=== PATIENT | female | born 1965 | race Caucasian/White ===

== ENCOUNTER 2018-09-06 18:16 | Observation (INO) | payer BC ==
[2018-09-06] MEDS ORDERED: ASPIRIN 81 MG PO STA (18:37)
--- NOTE | 2018-09-06 18:43 | ED ---
Chest Pain HPI - General Chief Complaint: Chest Pain Stated Complaint: Chest pain Time Seen by Provider: 09/06/18 18:25 Source: patient Mode of arrival: ambulatory Limitations: no limitations - History of Present Illness Initial Comments: Patient is a 53-year-old female who presents with a chief complaint of chest pain. This been going on for several weeks however worse today. Patient states she intermittently has chest pressure. She states that today she got chest pressure, associated with shortness of breath and lightheadedness. The patient identify any inciting incidences, nor can she identify any aggravating or alleviating factors that she does state that she is becoming increasingly short of breath with exertion. She is otherwise healthy, does not take any medications, she has a family history of an MO in her mother at the age of 76. Patient is a nonsmoker, nondiabetic, no diagnosed history of hypertension however she is hypertensive today. - Related Data Home Medications Medication Instructions Recorded Confirmed No Known Home Medications 09/06/18 09/06/18 Allergies Allergy/AdvReac Type Severity Reaction Status Date / Time amoxicillin [From Augmentin] Allergy Unknown Verified 09/06/18 18:58 clavulanic acid Allergy Unknown Verified 09/06/18 18:58 [From Augmentin] Review of Systems ROS Statement: Those systems with pertinent positive or pertinent negative responses have been documented in the HPI. ROS Other: All systems not noted in ROS Statement are negative. Cardiovascular: Reports: chest pain, dyspnea on exertion Past Medical History Past Medical History: No Reported History History of Any Multi-Drug Resistant Organisms: None Reported Additional Past Surgical History / Comment(s): carpal tunnel surgery Past Psychological History: No Psychological Hx Reported Smoking Status: Never smoker Past Alcohol Use History: None Reported Past Drug Use History: None Reported General Exam Limitations: no limitations General appearance: alert, in no apparent distress Head exam: Present: atraumatic, normocephalic Eye exam: Present: normal appearance ENT exam: Present: normal exam Neck exam: Present: normal inspection Respiratory exam: Present: normal lung sounds bilaterally. Absent: respiratory distress Cardiovascular Exam: Present: regular rate, normal rhythm GI/Abdominal exam: Present: soft. Absent: distended, tenderness Rectal exam: Present: deferred Extremities exam: Present: normal inspection Back exam: Present: normal inspection Neurological exam: Present: alert, oriented X3, CN II-XII intact, normal gait Psychiatric exam: Present: normal affect, normal mood Skin exam: Present: warm, dry, intact Course Vital Signs 09/06/18 18:22 Temperature 98.1 F Pulse Rate 84 Respiratory 18 Rate Blood Pressure 167/94 O2 Sat by Pulse 100 Oximetry Chest Pain MDM - Core Measures AMI Core Measures Followed: Yes - MDM Patient presents with a chief complaint of chest pain. On initial evaluation, vitals are stable she is mildly hypertensive. Patient is in no acute distress. Patient to be evaluated with basic labs including cardiac enzymes. She was given an aspirin. EKG performed at urgent care did not show any signs of ischemia however there was a prolonged QT segment, and nonspecific ST wave a bnormalities. Given the patient's history, patient is agreeable to evaluation and stress test. EKG performed at 1843 shows normal sinus rhythm with a rate of 84 bpm, there are nonspecific ST-T segment abnormalities however no acute findings of ischemia. Segments are otherwise within normal limits. 9:52 PM Lab evaluation this patient is unremarkable. Chest x-ray shows no acute process, initial troponin is negative. Case was discussed with Dr. Fairchild who accepts admission. patient and family agreeable with care plan. HEART Score for Major Cardiac Events from [email or web address] on 09/06/2018 All calculations should be rechecked by clinician prior to use RESULT SUMMARY: 5 points Moderate Score (4-6 points) Risk of MACE of 12-16.6%. INPUTS: History > 2 = Highly suspicious EKG > 1 = Non-specific repolarization disturbance Age > 1 = 45-64 Risk factors > 1 = 1-2 risk factors Initial troponin > 0 = ?normal limit Disposition Clinical Impression: Moderate risk chest pain Disposition: ADMITTED IP TO THIS HOSP Condition: Good Instructions (If sedation given, give patient instructions): Chest Pain (ED) Referrals: Cynthia Lockwood DO [Primary Care Provider] - 1-2 days Decision to Admit Reason: Admit from EC - Out of Hospital Transfer - Req. Specs Out of Hospital Transfer - Requested Specifics: Telemetry Unit
[2018-09-06 19:10] LABS: Basophils # (A) 0.1 k/uL (0-0.2); Basophils % (A) 1 %; Eosinophils # (A) 0.4 k/uL (0-0.7); Eosinophils % (A) 5 %; HCT 41.2 % (34.0-46.0); HGB 13.1 gm/dL (11.4-16.0); Lymphocytes # (A) 2.2 k/uL (1.0-4.8); Lymphocytes % (A) 27 %; MCH 27.1 pg (25.0-35.0); MCHC 31.8 g/dL (31.0-37.0); MCV 85.1 fL (80.0-100.0); Mean Platelet Volume 7.2; Monocytes # (A) 0.3 k/uL (0-1.0); Monocytes % (A) 4 %; Neutrophils # (A) 5.1 k/uL (1.3-7.7); Neutrophils % (A) 62 %; Platelet Count 240 k/uL (150-450); RBC 4.85 m/uL (3.80-5.40); RDW 13.6 % (11.5-15.5); WBC 8.1 k/uL (3.8-10.6)
[2018-09-06 19:20] LABS: Calcium 9.7 mg/dL (8.4-10.2); Potassium 4.1 mmol/L (3.5-5.1)
--- NOTE | 2018-09-06 19:25 | XR ---
EXAMINATION TYPE: XR chest 2V DATE OF EXAM: 09/06/2018 COMPARISON: NONE HISTORY: Chest pain TECHNIQUE: Frontal and lateral views of the chest are obtained. FINDINGS: There is no focal air space opacity, pleural effusion, or pneumothorax seen. The cardiac silhouette size is within normal limits. The osseous structures are intact. IMPRESSION: No acute cardiopulmonary process.
[2018-09-06] MEDS ORDERED: NALOXONE 0.4 MG/ML 1 ML VIAL IV PRN (21:51)
--- NOTE | 2018-09-06 22:54 | P.HPIM ---
History of Present Illness H&P Date: 09/06/18 The patient is a 53 yo F with no significant PMH, never-smoker who presented to the ED for chest pain. The patient reports that for the past 1 month, she had been experiencing non-exertional L sided chest pain, pressure-like, 5/10, w/ some radiation to the neck, occurring intermittently, lasting for up-to 10 minutes at a time, with no associated symptoms. She also reports noticing that her exercise tolerance is somewhat diminished over this time and she gets winded while working in her garden, which is unsual for her. She denied non-exertional dyspnea, palpitations, nausea, vomiting, diaphoresis. She also denied fever, chills, cough, abdominal pain, headache, or dizziness. She feels that her symptoms may be linked to increased stress at work. She is employed as a chinese teacher. She underwent an extensive evaluation in the ED w/ EKG showing NSR @ 84 bpm, with TWI in leads III and V1. Laboratory evaluation revealed a troponin of < 0.012, BNP 21, Hgb 13.1, platelets 240, Cr 0.91, BUN 13, and glucose 97. Review of Systems Pertinent positives and negatives as discussed in HPI, a complete review of systems was performed and all other systems are negative. Past Medical History Past Medical History: No Reported History History of Any Multi-Drug Resistant Organisms: None Reported Additional Past Surgical History / Comment(s): carpal tunnel surgery Past Psychological History: No Psychological Hx Reported Smoking Status: Never smoker Past Alcohol Use History: None Reported Past Drug Use History: None Reported Medications and Allergies Home Medications Medication Instructions Recorded Confirmed Type No Known Home Medications 09/06/18 09/06/18 History Allergies Allergy/AdvReac Type Severity Reaction Status Date / Time amoxicillin [From Augmentin] Allergy Unknown Verified 09/06/18 18:58 clavulanic acid Allergy Unknown Verified 09/06/18 18:58 [From Augmentin] Physical Exam Vitals: Vital Signs Temp Pulse Resp BP Pulse Ox 09/06/18 21:00 80 135/89 96 09/06/18 20:00 88 147/86 99 09/06/18 18:45 80 09/06/18 18:22 98.1 F 84 18 167/94 100 Intake and Output 09/06/18 09/06/18 09/06/18 06:59 14:59 22:59 Other: Weight 68.039 kg General: non toxic, no distress, appears at stated age, normal weight Derm: no unusual rashes/lesions no unusual ecchymoses, warm, dry Head: atraumatic, normocephalic, symmetric Eyes: EOMI, no lid lag, anicteric sclera, pupils equal round reactive to light ENT: Nose and ears atraumatic, no thrush, no pharyngeal erythema Neck: No thyromegaly, no cervical lymphadenopathy, trachea midline, supple Mouth: no lip lesion, mucus membranes moist Cardiovascular: S1S2 reg, no murmur, positive posterior tibial pulse bilateral, no edema, capillary refill less than 2 seconds Lungs: CTA bilateral, no rhonchi, no rales , no accessory muscle use Abdominal: soft, nontender to palpation, no guarding, no appreciable orga nomegaly, normal bowel sounds Ext: no gross muscle atrophy, muscle strength 5 out of 5 in all 4 extremities grossly, no contractures, Neuro: CN II-XI grossly intact, light touch intact all 4 extremities, finger to nose within normal limits, Psych: Alert, oriented, appropriate affect Results CBC & Chem 7: 09/06/18 18:50 09/06/18 18:50 Assessment and Plan Plan: Chest pain, r/o ACS -Cardiology consult -Trend Troponin and EKG -Cardiac monitoring -C/w Aspirin DVT prophylaxis -Heparin The patient is admitted with an anticipated less than 2 midnight stay for evaluation of chest pain. CODE STATUS:Full code Discussed with: Patient Anticipated discharge date: 09/07/[address]: Home A total of 40 minutes was spent on the care of this complex patient more than 50% of the time was spent in counseling and care coordination.
[2018-09-07] MEDS ORDERED: HEPARIN SODIUM,PORCINE 5,000 UNIT/ML 1 ML VIAL SQ SCH
[2018-09-07 06:18] LABS: Basophils # (A) 0.1 k/uL (0-0.2); Basophils % (A) 1 %; Eosinophils # (A) 0.4 k/uL (0-0.7); Eosinophils % (A) 6 %; HCT 41.4 % (34.0-46.0); HGB 12.9 gm/dL (11.4-16.0); Lymphocytes # (A) 2.5 k/uL (1.0-4.8); Lymphocytes % (A) 37 %; MCH 26.9 pg (25.0-35.0); MCHC 31.2 g/dL (31.0-37.0); MCV 86.2 fL (80.0-100.0); Mean Platelet Volume 7.2; Monocytes # (A) 0.3 k/uL (0-1.0); Monocytes % (A) 5 %; Neutrophils # (A) 3.3 k/uL (1.3-7.7); Neutrophils % (A) 49 %; Platelet Count 245 k/uL (150-450); RDW 13.7 % (11.5-15.5); WBC 6.8 k/uL (3.8-10.6)
[2018-09-07 06:29] LABS: Anion Gap 5 mmol/L; Blood Urea Nitrogen 13 mg/dL (7-17); Calcium 9.5 mg/dL (8.4-10.2); Carbon Dioxide 25 mmol/L (22-30); Chloride 109 mmol/L (98-107); Glucose 84 mg/dL (74-99); Potassium 4.5 mmol/L (3.5-5.1); Sodium 139 mmol/L (137-145)
[2018-09-07 08:21] VITALS: RESP 18
[2018-09-07] MEDS ORDERED: ASPIRIN 81 MG PO SCH (09:00)
[2018-09-07 10:21] LABS: Cholesterol 161 mg/dL (<200); HDL Cholesterol 52 mg/dL (40-60); LDL Cholesterol,Calculated 97 mg/dL (0-99); Triglycerides 58 mg/dL (<150)
--- NOTE | 2018-09-07 11:45 | ECHOF ---
Referral Reason:cp MEASUREMENTS -------- HEIGHT: 160.0 cm WEIGHT: 68.0 kg BP: RVIDd: 2.6 cm (< 3.3) IVSd: 0.8 cm (0.6 - 1.1) LVIDd: 4.1 cm (3.9 - 5.3) LVPWd: 1.1 cm (0.6 - 1.1) IVSs: 1.6 cm LVIDs: 1.6 cm LVPWs: 1.8 cm LAESV Index (A-L): 17.61 ml/m Ao Diam: 2.8 cm (2.0 - 3.7) AV Cusp: 2.0 cm (1.5 - 2.6) LA Diam: 2.3 cm (2.7 - 3.8) MV EXCURSION: 8.460 mm (> 18.000) MV EF SLOPE: 83 mm/s (70 - 150) EPSS: 0.4 cm MV E Bulmaro: 0.84 m/s MV DecT: 269 ms MV A Bulmaro: 0.87 m/s MV E/A Ratio: 0.96 AR PHT: 699 ms RAP: 5.00 mmHg RVSP: 14.41 mmHg FINDINGS -------- Sinus rhythm. This was a technically good study. The left ventricular size is normal. Left ventricular wall thickness is normal. Overall left vent ricular systolic function is normal with, an EF between 55 - 60 %. The right ventricle is normal in size. Normal LA size by volume 22+/-6 ml/m2. The right atrial size is normal. Interatrial and interventricular septum intact. The aortic valve was not well visualized. There is mild aortic regurgitation. The mitral valve is normal. There is trace mitral regurgitation. Trace tricuspid regurgitation present. There is no evidence of pulmonary hypertension. The right ventricular systolic pressure, as measured by Doppler, is 14.41mmHg. There is no pulmonic regurgitation present. The aortic root size is normal. Normal inferior vena cava with normal inspiratory collapse consistent with estimated right atrial pre ssure of 5 mmHg. There is no pericardial effusion. CONCLUSIONS -------- 1. Sinus rhythm. 2. This was a technically good study. 3. The left ventricular size is normal. 4. Left ventricular wall thickness is normal. 5. Overall left ventricular systolic function is normal with, an EF between 55 - 60 %. 6. The right ventricle is normal in size. 7. Normal LA size by volume 22+/-6 ml/m2. 8. The right atrial size is normal. 9. Interatrial and interventricular septum intact. 10. The aortic valve was not well visualized. 11. There is mild aortic regurgitation. 12. The mitral valve is normal. 13. There is trace mitral regurgitation. 14. Trace tricuspid regurgitation present. 15. There is no evidence of pulmonary hypertension. 16. The right ventricular systolic pressure, as measured by Doppler, is 14.41mmHg. 17. There is no pulmonic regurgitation present. 18. The aortic root size is normal. 19. Normal inferior vena cava with normal inspiratory collapse consistent with estimated right atrial pressure of 5 mmHg. 20. There is no pericardial effusion. DIRECTOR OF COMMUNITY LIFE: Juhi Salvador RDCS
--- NOTE | 2018-09-07 11:49 | ECHOS ---
STRESS ECHOCARDIOGRAM DATE OF SERVICE: 09/07/2018 INDICATIONS: Chest pain. MEDICATIONS: BASELINE HEART RATE: 73 BASELINE BLOOD PRESSURE: 124/80 MAXIMUM HEART RATE: 148 MAXIMUM BLOOD PRESSURE: 171/79 85% MPHR: 144 100% MPHR: 169 METS: 9 MAXIMUM STAGE REACHED: III TOTAL EXERCISE TIME: 8 minutes CLINICAL INFORMATION: Baseline EKG shows sinus rhythm, normal axis, normal intervals. Patient exercised on Fareed protocol for a total of 8 minutes achieving 9 METs, 87% of predicted maximal heart rate without chest pain. At peak exercise, there was 1.[address]-segment depression noted in the inferolateral leads. Baseline echo shows normal left ventricular size, wall motion and systolic function. Postexercise there is normal hyperdynamic response of all segments of myocardium noted. CONCLUSIONS: 1. Good exercise tolerance. 2. Abnormal stress test by EKG criteria. 3. Normal stress test by echocardiographic data. MMSABINEL / IJN: [id number] /
[2018-09-07 12:08] VITALS: BP 124/82; PULSE 80; TEMP 98.2
--- NOTE | 2018-09-07 12:33 | P.CRDCN ---
History of Present Illness History of present illness: This is a pleasant 53-year-old female with no significant past medical history. She denies history of coronary artery disease in herself or her immediate family, no hypertension, no dyslipidemia and diabetes mellitus. She does not follow with a commercial crabber for any reason. We have been asked to see her in consultation secondary to chest discomfort. She states since May she has been feeling an achy sensation in the left arm. She has seen her primary care physician multiple times and had extensive workup in the forms of vascular studies, EMG and x-rays. There has been no official diagnosis as to the left arm discomfort. Recently over the previous couple of days she has noticed increased exertional shortness of breath and an intermittent pressure in the left precordial region. She states she has felt this discomfort in her chest in the past however associated with the left arm discomfort she came to the hospital for further evaluation. She states she walks regularly with her and has noticed an increase in her shortness of breath with walking as well as becoming acutely diaphoretic. Yesterday she was gardening and became short of breath with minimal activity. She denies palpitations, nausea or vomiting. She is seen and examined resting comfortably in bed in no acute distress. She is currently chest pain-free and denies dyspnea. She states she underwent an exercise stress echocardiogram approximately one year ago for previous surgical authorization secondary to baseline abnormal EKG at [facility] that she states was normal and she was able to proceed with surgery. EKG on arrival reveals sinus mechanism with T-wave inversions and ST depression inferiorly as well as ST depression in the lateral leads. Chest x-ray is negative for an acute cardiopulmonary process. Laboratory data reviewed, WBC 6.8, hemoglobin 12.9, platelets 245, sodium 139, potassium 4.5, creatinine 0.85, cardiac enzymes negative 3, NT proBNP 21, LDL 97 HDL 52. She takes no daily cardiac medications. At the time of my exam: CONSTITUTIONAL: Denies fever. Denies chills. EYES: Denies blurred vision. Denies vision changes. Denies eye pain. EARS, NOSE, MOUTH & THROAT: Denies headache. Denies sore throat. Denies ear pain. CARDIOVASCULAR: Denies chest pain. Denies shortness of breath. Denies orthopnea. Denies PND. Denies palpitations. RESPIRATORY: Denies cough. GASTROINTESTINAL: Denies abdominal pain. Denies diarrhea. Denies constipation. Denies nausea. Denies vomiting. MUSCULOSKELETAL: Denies myalgias. INTEGUMENTARY: Denies pruitis. Denies rash. NEUROLOGIC: Denies numbness. Denies tingling. Denies weakness. PSYCHIATRIC: Denies anxiety. Denies depression. ENDOCRINE: Denies fatigue. Denies weight change. Denies polydipsia. Denies polyurina. GENITOURINARY: Denies burning, hematuria or urgency with micturation. HEMATOLOGIC: Denies history of anemia. Denies bleeding. Blood pressure 124/82 heart rate 88 afebrile maintaining oxygen saturation on room air GENERAL: This is a 53-year-old female in no apparent distress at the time of my examination. HEENT: Head is atraumatic, normocephalic. Pupils are equal, round. Sclerae anicteric. Conjunctivae are clear. Mucous membranes of the mouth are moist. Neck is supple. There is no jugular venous distention. No carotid bruit is heard. LUNGS: Clear to auscultation no wheezes, rales or rhonchi. No chest wall tenderness is noted on palpation or with deep breathing. HEART: Regular rate and rhythm with faint systolic ejection murmur at the base, no rubs or gallops. S1 and S2 heard. ABDOMEN: Soft, nontender. Bowel sounds are heard. No organomegaly noted. EXTREMITIES: No evidence of peripheral edema and no calf tenderness noted. VASCULAR: Radial and dorsalis pedis pulses palpated, no evidence of clubbing. NEUROLOGIC: Patient is awake, alert and oriented x3. ASSESSMENT Chest pain with shortness of breath, an acute coronary event has been ruled out. Baseline EKG abnormalities. PLAN An acute coronary event has been ruled out. Obtain 2D echocardiogram and doppler study to assess cardiac structure and function. Obtain reports of previous EKG and stress test from [facility] from 06/2017. Perform stress echocardiogram to assess for stress induced ischemia. If stress test is normal she is stable for discharge from a cardiac perspective. Follow up with Dr. Mahan in 2 weeks for ongoing evaluation. Thank you kindly for this consultation. Nurse Practitioner note has been reviewed, I agree with a documented findings and plan of care. Patient was seen and examined. Past Medical History Past Medical History: No Reported History History of Any Multi-Drug Resistant Organisms: None Reported Additional Past Surgical History / Comment(s): carpal tunnel surgery Past Anesthesia/Blood Transfusion Reactions: No Reported Reaction Past Psychological History: No Psychological Hx Reported Smoking Status: Never smoker Past Alcohol Use History: None Reported Past Drug Use History: None Reported Medications and Allergies Home Medications Medication Instructions Recorded Confirmed Type No Known Home Medications 09/06/18 09/06/18 History Allergies Allergy/AdvReac Type Severity Reaction Status Date / Time amoxicillin [From Augmentin] Allergy Unknown Verified 09/06/18 18:58 clavulanic acid Allergy Unknown Verified 09/06/18 18:58 [From Augmentin] Physical Exam Vitals: Vital Signs Temp Pulse Pulse Resp BP BP BP 09/07/18 11:50 98.2 F 80 18 124/82 09/07/18 07:30 97.8 F 83 18 121/76 09/07/18 04:00 98.2 F 80 15 145/94 09/07/18 03:22 70 16 09/07/18 00:46 97.8 F 99 16 118/74 09/07/18 00:00 17 09/06/18 23:43 98.5 F 84 18 138/76 09/06/18 22:18 17 09/06/18 21:00 80 135/89 09/06/18 20:00 88 147/86 09/06/18 18:45 80 09/06/18 18:22 98.1 F 84 18 167/94 Pulse Ox 09/07/18 11:50 97 09/07/18 07:30 99 09/07/18 04:00 99 09/07/18 03:22 09/07/18 00:46 99 09/07/18 00:00 09/06/18 23:43 96 09/06/18 22:18 09/06/18 21:00 96 09/06/18 20:00 99 09/06/18 18:45 09/06/18 18:22 100 Intake and Output 09/06/18 09/07/18 09/07/18 22:59 06:59 14:59 Other: Voiding Method Toilet Toilet # Voids 1 1 Weight 68.039 kg Results 09/07/18 05:35 09/07/18 05:35 Cardiac Enzymes 09/06/18 09/07/18 09/07/18 Range/Units 18:50 00:32 05:35 Troponin I <0.012 <0.012 <0.012 (0.000-0.034) ng/mL Lipids 09/07/18 Range/Units 05:35 Triglycerides 58 (<150) mg/dL Cholesterol 161 (<200) mg/dL HDL Cholesterol 52 (40-60) mg/dL CBC 09/06/18 09/07/18 Range/Units 18:50 05:35 WBC 8.1 6.8 (3.8-10.6) k/uL RBC 4.85 4.80 (3.80-5.40) m/uL Hgb 13.1 12.9 (11.4-16.0) gm/dL Hct 41.2 41.4 (34.0-46.0) % Plt Count 240 245 (150-450) k/uL Comprehensive Metabolic Panel 09/06/18 09/07/18 Range/Units 18:50 05:35 Sodium 141 139 (137-145) mmol/L Potassium 4.1 4.5 (3.5-5.1) mmol/L Chloride 107 109 H (98-107) mmol/L Carbon Dioxide 26 25 (22-30) mmol/L BUN 13 13 (7-17) mg/dL Creatinine 0.91 0.85 (0.52-1.04) mg/dL Glucose 97 84 (74-99) mg/dL Calcium 9.7 9.5 (8.4-10.2) mg/dL Current Medications Generic Name Dose Route Start Last Admin Trade Name Freq PRN Reason Stop Dose Admin Aspirin 81 mg 09/07/18 09:00 09/07/18 11:50 Aspirin PO Not Given DAILY MAYE Naloxone HCl 0.2 mg 09/06/18 21:51 Narcan IV Q2M PRN Opioid Reversal Intake and Output 09/06/18 09/07/18 09/07/18 22:59 06:59 14:59 Other: Voiding Method Toilet Toilet # Voids 1 1 Weight 68.039 kg 09/07/18 05:35 09/07/18 05:35
--- NOTE | 2018-09-07 12:39 | P.PN ---
Progress Note - Text Stress test as dictated is incorrect. Her stress test showed abnormal EKG response to exercise with no wall motion abnormalities to suggest ischemia. Normal stress test.
--- NOTE | 2018-09-07 13:44 | P.DS ---
Providers Date of admission: 09/06/18 21:52 Expected date of discharge: 09/07/18 Attending physician: García Fairchild MD Consults: 09/06/18 22:53 Consult Physician Urgent Consulting Provider: Kareem Fajardo Consult Reason/Comments: chest pain Do you want consulting provider notified?: Yes Primary care physician: Cynthia Lockwood Hospital Course: Discharge Diagnosis: Non cardiac chest pain Hospital Course: Patient is a 53 yo CF with no past medical history who is a non smoker. She presented to the emergency department with chest pain with radiation to the neck. In the ED she underwent an extensive evaluation. On Arrival her blood pressure was slightly elevated at 167/94. This resolved without intervention. Her EKG showed TWI in leads III and V1. Initial troponin was negative. She was given a dose of aspirin and admitted for further monitoring. Her troponin remained negative. She was seen by cardiology and underwent exercise stress echo which was normal. She was determined stable for discharge. Her cholesterol profile was within normal limits. She will follow up with Dr. Asher in 1-[address] Mahan in 2 weeks. Patient seen and examined at bedside. States " Even if I was still having chest pain I wouldn't tell anyone at this hospital as it took 2.5 hrs to get my stress test results. I was about to leave AMA." Vital signs reviewed and stable. General: non toxic, no distress, appears at stated age Derm: warm, dry Head: atraumatic, normocephalic, symmetric Eyes: EOMI, no lid lag, anicteric sclera Cardiovascular: S1S2 reg, no murmur, positive posterior tibial pulse bilateral, Lungs: CTA bilateral, no rhonchi, no rales , no accessory muscle use A total of 15 minutes of time were spent preparing this complex discharge summary . Pertinent Studies: stress echo- normal CXR- NAP Patient Condition at Discharge: Good Plan - Discharge Summary Discharge Rx Participant: Yes New Discharge Prescriptions: Continue No Known Home Medications Discharge Medication List No Known Home Medications 09/06/18 [History] Follow up Appointment(s)/Referral(s): Cynthia Lockwood DO [Primary Care Provider] - 1-2 days Jameson Mahan MD [STAFF PHYSICIAN] - 2 Weeks Patient Instructions/Handouts: Chest Pain (ED) Activity/Diet/Wound Care/Special Instructions: Regular diet Activity as tolerated
== END 2018-09-07 13:56 | disposition home or self-care (01) ==
LOC: EC 18:16 → 1SOBS 21:52
PROVIDERS: ADMIT Internal Medicine; ATTEND Internal Medicine
DX: R07.2 Precordial pain (principal); R42 Dizziness and giddiness; M79.602 Pain in left arm; I45.81 Long QT syndrome; R06.00 Dyspnea, unspecified; R06.02 Shortness of breath; R03.0 Elevated blood-pressure reading, without diagnosis of hypertension; R61 Generalized hyperhidrosis; Z82.49 Family history of ischemic heart disease and other diseases of the circulatory system; Z88.0 Allergy status to penicillin
CPT/HCPCS: 99285; 36415; 93005; 93306; 93351; 83880; 80061; 80048 ×2; 84484 ×2; 85025 ×2; 71046; G0378 ×2

== ENCOUNTER → 2022-07-18 | Outpatient (CLI) | payer BC ==
--- NOTE | 2022-07-22 16:33 | MM ---
Reason for Exam: Screening (asymptomatic). Last mammogram was performed 1 year(s) and 4 month(s) ago. Patient History: Menarche at age 14. First Full-Term at age 15. Postmenopausal. Patient has history of breast feeding. 02/2022, US biopsy breast VAD RT on the Right side. Risk Values: Bebe 5 year model risk: 1.0%. NCI Lifetime model risk: 7.0%. Prior Study Comparison: 11/30/2015 Bilateral Screening Mammogram, [facility]. 02/21/2020 Bilateral MG 3D screening mammo w/cad, [facility]. 02/28/2021 Bilateral MG 3D screening mammo w/cad, [facility]. 03/20/2021 Right MG 3D work up w/cad RT, [facility]. Tissue Density: There are scattered fibroglandular densities. Findings: Analyzed By CAD. Abdomen appear symmetrical stable. No significant interval change is evident. A core markers within the right breast. No suspicious groups of microcalcifications, spiculated or lobular masses, architectural distortion or other secondary signs of malignancy are mammographically apparent.Pattern appears symmetrical and stable. There is a focal asymmetry within the mid upper left breast. Compression views recommended over this area. A core marker is within the right breast. No suspicious groups of microcalcifications, spiculated or lobular masses, architectural distortion or other secondary signs of malignancy are mammographically apparent. Overall Assessment: Incomplete: need additional imaging evaluation, BI-RAD 0 Management: Diagnostic Mammogram of the left breast. A negative mammogram report should not preclude additional follow up of suspicious palpable abnormalities. Patient should continue monthly self breast exam. A clinical breast exam by your physician is recommended on an annual basis and results should be correlated with mammographic findings. Electronically signed and approved by: Shawn Miranda D.O. Radiologis
== END | disposition home or self-care (01) ==
LOC: RADMAMWWP 12:40
PROVIDERS: ATTEND Obstetrics & Gynecology
DX: Z12.31 Encounter for screening mammogram for malignant neoplasm of breast (principal); Z78.0 Asymptomatic menopausal state
CPT/HCPCS: 77063; 77067

== ENCOUNTER → 2022-07-26 | Outpatient (CLI) | payer BC ==
--- NOTE | 2022-07-26 10:26 | MM ---
Reason for Exam: Additional evaluation requested from abnormal screening. Last screening mammogram was performed less than 1 month ago. Patient History: Menarche at age 14. First Full-Term at age 15. Postmenopausal. Patient has history of breast feeding. 02/2022, US biopsy breast VAD RT on the Right side. Risk Values: Bebe 5 year model risk: 1.0%. NCI Lifetime model risk: 7.0%. Prior Study Comparison: 02/28/2021 Bilateral MG 3D screening mammo w/cad, [facility]. 03/20/2021 Right MG 3D work up w/cad RT, [facility]. 07/18/2022 Bilateral MG 3D screening mammo w/cad, [facility]. Tissue Density: Left: The breast tissue is heterogeneously dense. This may lower the sensitivity of mammography. Findings: Analyzed By CAD. No suspicious calcifications within the left breast. No architectural distortion. Focal asymmetry within the left breast in the mid upper portion compresses without definitive nodularity identified. Overall Assessment: Benign, BI-RAD 2 Management: Screening Mammogram of both breasts in 1 year. A clinical breast exam by your physician is recommended on an annual basis and results should be correlated with mammographic findings. This exam should not preclude additional follow-up of suspicious palpable abnormalities. Results were given to the patient verbally at the time of exam. Electronically signed and approved by: Zia Armstrong D.O.
== END | disposition home or self-care (01) ==
LOC: RADMAMWWP 09:51
PROVIDERS: ATTEND Obstetrics & Gynecology
DX: R92.8 Other abnormal and inconclusive findings on diagnostic imaging of breast (principal); Z78.0 Asymptomatic menopausal state
CPT/HCPCS: 77061; 77065

== ENCOUNTER → 2023-07-25 | Outpatient (CLI) | payer BC ==
--- NOTE | 2023-07-28 12:44 | MM ---
Reason for Exam: Screening (asymptomatic). Last mammogram was performed 1 year(s) and 1 month(s) ago. Patient History: Menarche at age 14. First Full-Term at age 15. Postmenopausal. Patient has history of breast feeding. 02/2022, US biopsy breast VAD RT on the Right side. Risk Values: Bebe 5 year model risk: 1.0%. NCI Lifetime model risk: 6.9%. Prior Study Comparison: 03/20/2021 Right MG 3D work up w/cad RT, [facility]. 07/18/2022 Bilateral MG 3D screening mammo w/cad, [facility]. 07/26/2022 Left MG 3D work up w/cad , [facility]. Tissue Density: The breasts are heterogeneously dense, which may obscure small masses. Findings: Analyzed By CAD. Small grouped calcifications in the subareolar central upper breast breast. Surgical clip right breast. Benign-appearing calcifications. Overall Assessment: Incomplete: need additional imaging evaluation, BI-RAD 0 Management: Diagnostic Mammogram of the left breast. . Patient should continue monthly self-breast exams. A clinical breast exam by your physician is recommended on an annual basis. This exam should not preclude additional follow-up of suspicious palpable abnormalities. Note on Bebe scores and lifetime risk: 1. A Bebe score greater than 3% is considered moderate risk. If this is the case, consider specialist referral to assess eligibility for a risk reducing agent. 2. If overall lifetime risk for the development of breast cancer is 20% or higher, the patient may qualify for future screening with alternating mammogram and breast MRI. Electronically signed and approved by: Bandar May M.D. Radiologis
== END | disposition home or self-care (01) ==
LOC: RADMAMWWP 16:20
PROVIDERS: ATTEND Obstetrics & Gynecology
DX: Z12.31 Encounter for screening mammogram for malignant neoplasm of breast (principal); Z78.0 Asymptomatic menopausal state
CPT/HCPCS: 77063; 77067

== ENCOUNTER → 2023-08-01 | Outpatient (CLI) | payer BC ==
--- NOTE | 2023-08-01 09:40 | MM ---
Reason for Exam: Additional evaluation requested from abnormal screening. Last screening mammogram was performed less than 1 month ago. Patient History: Menarche at age 14. First Full-Term at age 15. Postmenopausal. Patient has history of breast feeding. 02/2022, US biopsy breast VAD RT on the Right side. Risk Values: Bebe 5 year model risk: 1.0%. NCI Lifetime model risk: 6.9%. Prior Study Comparison: 07/18/2022 Bilateral MG 3D screening mammo w/cad, [facility]. 07/26/2022 Left MG 3D work up w/cad LT, [facility]. 07/25/2023 Bilateral MG 3D screening mammo w/cad, [facility]. Tissue Density: Left: The breasts are heterogeneously dense, which may obscure small masses. Findings: Analyzed By CAD. Benign group of calcifications left breast without suspicious cluster. Overall Assessment: Benign, BI-RAD 2 Management: Screening Mammogram of both breasts in 1 year. . Results were given to the patient verbally at the time of exam. Patient should continue monthly self-breast exams. A clinical breast exam by your physician is recommended on an annual basis. This exam should not preclude additional follow-up of suspicious palpable abnormalities. Note on Bebe scores and lifetime risk: 1. A Bebe score greater than 3% is considered moderate risk. If this is the case, consider specialist referral to assess eligibility for a risk reducing agent. 2. If overall lifetime risk for the development of breast cancer is 20% or higher, the patient may qualify for future screening with alternating mammogram and breast MRI. Electronically signed and approved by: Deonte Charles M.D. Radiologis
== END | disposition home or self-care (01) ==
LOC: RADMAMWWP 08:22
PROVIDERS: ATTEND Obstetrics & Gynecology
DX: R92.8 Other abnormal and inconclusive findings on diagnostic imaging of breast (principal); R92.332 Mammographic heterogeneous density, left breast; R92.1 Mammographic calcification found on diagnostic imaging of breast; Z78.0 Asymptomatic menopausal state
CPT/HCPCS: 77061; 77065

== ENCOUNTER → 2023-12-19 | Outpatient (CLI) | payer BC ==
--- NOTE | 2023-12-19 17:50 | CA ---
Transthoracic Echo Report Name: Jessica Guevara Age: 58 Gender: F : 1965 Exam Date: 12/19/2023 11:30 Exam Location: [facility] Ht (in): 63 Wt (lb): 165 Ordering Physician: Cynthia Lockwood DO Attending/Referring Phys: Cynthia Lockwood DO Accounting Professor Renata Mendes RDCS Procedure CPT: Indications: R01.1 Murmur Cardiac Hx: Technical Quality: Fair Contrast 1: Total Dose (mL): Contrast 2: Total Dose (mL): MEASUREMENTS (Male / Female) Normal Values 2D ECHO LV Diastolic Diameter PLAX 4.5 cm 4.2 - 5.9 / 3.9 - 5.3 cm LV Systolic Diameter PLAX 2.9 cm IVS Diastolic Thickness 0.9 cm 0.6 - 1.0 / 0.6 - 0.9 cm LVPW Diastolic Thickness 0.9 cm 0.6 - 1.0 / 0.6 - 0.9 cm LV Relative Wall Thickness 0.4 RV Internal Dim ED PLAX 3.9 cm LA Volume 51.9 cm??? 18 - 58 / 22 - 52 cm??? LA Volume Index 28.1 cm???/m??? 16 - 28 cm???/m??? M-MODE Aortic Root Diameter MM 2.6 cm LA Systolic Diameter MM 3.5 cm LA Ao Ratio MM 1.4 AV Cusp Separation MM 1.8 cm DOPPLER AV Peak Velocity 158.4 cm/s AV Peak Gradient 10.0 mmHg AV Mean Velocity 104.9 cm/s AV Mean Gradient 5.1 mmHg AV Velocity Time Integral 31.1 cm AI Peak Velocity 261.8 cm/s AI Peak Gradient 27.4 mmHg AI Pressure Half Time 817.9 ms LVOT Peak Velocity 136.0 cm/s LVOT Peak Gradient 7.4 mmHg LVOT Velocity Time Integral 27.0 cm MV Area PHT 3.9 cm??? Mitral E Point Velocity 69.6 cm/s Mitral A Point Velocity 59.7 cm/s Mitral E to A Ratio 1.2 MV Deceleration Time 192.1 ms MV E' Velocity 6.5 cm/s Mitral E to MV E' Ratio 10.8 FINDINGS Left Ventricle Normal Left ventricular size, wall thickness, systolic function with no obvious regional wall motion abnormalities. Normal Left ventricular diastolic filling pattern. Left ventricular ejection fraction is estimated at 55-60 %. Right Ventricle Mild right ventricular dilatation. Right ventricular systolic pressure within normal limits. Right Atrium Normal right atrial size. Left Atrium Normal left atrial size. Mitral Valve Structurally normal mitral valve. No mitral stenosis. Mild mitral regurgitation. Aortic Valve Trileaflet aortic valve. No aortic stenosis. Trace to mild aortic regurgitation. Aortic valve sclerosis. Tricuspid Valve Structurally normal tricuspid valve. Mild tricuspid regurgitation. Pulmonic Valve Structurally normal pulmonic valve. Pericardium No pericardial effusion. Aorta Normal size aortic root and proximal ascending aorta. CONCLUSIONS Left ventricular ejection fraction 55-60% Mild mitral regurgitation Trace to mild aortic regurgitation Mild tricuspid regurgitation Previewed by: Dr. Jose Daniel Veras DO (Electronically Signed) Final Date: 19 December 2023 17:48
== END | disposition home or self-care (01) ==
LOC: RADECHMAIN 11:21
PROVIDERS: ATTEND Family Medicine
DX: R01.1 Cardiac murmur, unspecified (principal); I08.3 Combined rheumatic disorders of mitral, aortic and tricuspid valves
CPT/HCPCS: 93306

== ENCOUNTER → 2024-08-17 | Outpatient (CLI) | payer BC ==
--- NOTE | 2024-08-17 14:03 | MM ---
Reason for Exam: Screening (asymptomatic). Last screening mammogram was performed 12 month(s) ago. Patient History: Menarche at age 14. First Full-Term at age 15. Postmenopausal. Patient has history of breast feeding. 02/2022, US biopsy breast VAD RT on the Right side. Risk Values: Bebe 5 year model risk: 1.1%. NCI Lifetime model risk: 6.7%. Prior Study Comparison: 11/24/2013 Screening Mammogram, [facility]. 11/28/2014 Screening Mammogram, [facility]. 11/30/2015 Bilateral Screening Mammogram, [facility]. 02/21/2020 Bilateral MG 3D screening mammo w/cad, [facility] . 02/28/2021 Bilateral MG 3D screening mammo w/cad, [facility] . 03/20/2021 Right MG 3D work up w/cad RT, [facility] . 07/18/2022 Bilateral MG 3D screening mammo w/cad, [facility]. 07/26/2022 Left MG 3D work up w/cad LT, [facility]. 07/25/2023 Bilateral MG 3D screening mammo w/cad, [facility]. 08/01/2023 Left MG 3D work up w/cad LT, [facility]. Tissue Density: The breasts are heterogeneously dense, which may obscure small masses. Findings: Mammotome biopsy clip in the right breast is redemonstrated anterior upper outer aspect. There is no suspicious group of microcalcifications or new suspicious mass in either breast. Overall Assessment: Negative, BI-RAD 1 Management: Screening Mammogram of both breasts in 1 year. Some advise annual bilateral breast ultrasound surveillance of patient's with background dense tissue. Patient should continue monthly self-breast exams. A clinical breast exam by your physician is recommended on an annual basis. This exam should not preclude additional follow-up of suspicious palpable abnormalities. Note on Bebe scores and lifetime risk: 1. A Bebe score greater than 3% is considered moderate risk. If this is the case, consider specialist referral to assess eligibility for a risk reducing agent. 2. If overall lifetime risk for the development of breast cancer is 20% or higher, the patient may qualify for future screening with alternating mammogram and breast MRI. [facility], , 08/17/2024 2:01 PM. Electronically signed and approved by: Nick Velasquez M.D.
== END | disposition home or self-care (01) ==
LOC: RADMAMWWP 10:37
PROVIDERS: ATTEND Obstetrics & Gynecology
DX: Z12.31 Encounter for screening mammogram for malignant neoplasm of breast (principal); R92.333 Mammographic heterogeneous density, bilateral breasts; Z78.0 Asymptomatic menopausal state
CPT/HCPCS: 77063; 77067